=== PATIENT | male | born 1955 | race Caucasian/White ===

== ENCOUNTER 2024-01-03 22:12 | Inpatient (IN) ==
[2024-01-03 22:28] LABS: ABS Basophils 0.1 10^3/uL (0.0-0.1); ABS Eosinophils 0.3 10^3/uL (0.0-0.5); ABS Lymphocytes 1.4 10^3/uL (1.0-4.8); ABS Monocytes 0.6 10^3/uL (0.0-1.1); ABS Neutrophils 4.3 10^3/uL (1.5-7.6); ABS Nucleated RBC 0.01 10^3/ul; Eosinophil % 4.2 %; Hematocrit 42.8 % (38-53); Hemoglobin 14.9 g/dL (13.2-16.3); Lymphocyte % 21.2 %; Mean Corpuscular Hemoglobin 31.3 pg (27-33); Mean Corpuscular Hgb Conc 34.9 g/dL (31-36); Mean Corpuscular Volume 89.6 fL (80-97); Mean Platelet Volume 8.7 fL (7.5-11.2); Nucleated Red Blood Cells % 0.1 %/100WBC (0.0-0.8); Platelet Count 168 10^3/uL (150-450); Red Blood Count 4.78 10^6/uL (4.06-5.63); Red Cell Distribution Width 14.4 % (12-17); White Blood Count 6.6 10^3/uL (3.6-10.2)
[2024-01-03] MEDS: Amiodarone 150 mg IVPREMIX 150 MG/100 ML BAG IV ONE (22:29)
[2024-01-03 22:34] LABS: INR 1.03 (0.83-1.13)
[2024-01-03 23:13] LABS: Albumin/Globulin Ratio 1.6 (1-3); Calcium 8.6 mg/dL (8.6-10.3); Creatinine, Serum 1.06 mg/dL (0.67-1.17); Globulin 2.5 g/dL (2-4); Potassium 3.9 mmol/L (3.5-5.0); Total Bilirubin 0.4 mg/dL (0.2-1.0); Total Protein 6.5 g/dL (6.4-8.9); eGFR CKD-EPI 77.4 (>60)
[2024-01-03] MEDS: Metoprolol Tartrate 5 mg VIAL 5 ml VIAL (1 mg/ml) IV ONE (23:29)
[2024-01-03 23:31] LABS: Magnesium 2.1 mg/dL (1.9-2.7)
[2024-01-03 23:50] LABS: High Sensitivity Troponin 1 Hr 114 pg/mL (<20)
[2024-01-03] MEDS: Amiodarone 360 MG IVPREMIX 360 MG/200 ML BAG IV ONE (23:57)
[2024-01-03] MEDS: NS 0.9% 1000 ml BAG 500 ML IV ONE (23:58)
[2024-01-04] MEDS: Furosemide 40 mg/4 ml IV VIAL IV SLOW PU ONE (00:14)
[2024-01-04] MEDS: Potassium Chlor 20 meq TAB.ER PO ONE ×2 (00:14→08:32)
[2024-01-04 04:51] LABS: ABS Basophils 0.1 10^3/uL (0.0-0.1); ABS Eosinophils 0.3 10^3/uL (0.0-0.5); ABS Lymphocytes 2.2 10^3/uL (1.0-4.8); ABS Monocytes 0.8 10^3/uL (0.0-1.1); ABS Neutrophils 3.9 10^3/uL (1.5-7.6); ABS Nucleated RBC 0.01 10^3/ul; Eosinophil % 3.8 %; Hematocrit 42.5 % (38-53); Hemoglobin 14.6 g/dL (13.2-16.3); Lymphocyte % 30.7 %; Mean Corpuscular Hemoglobin 30.8 pg (27-33); Mean Corpuscular Hgb Conc 34.4 g/dL (31-36); Mean Corpuscular Volume 89.5 fL (80-97); Mean Platelet Volume 9.1 fL (7.5-11.2); Nucleated Red Blood Cells % 0.1 %/100WBC (0.0-0.8); Platelet Count 181 10^3/uL (150-450); Red Blood Count 4.75 10^6/uL (4.06-5.63); Red Cell Distribution Width 14.6 % (12-17); White Blood Count 7.2 10^3/uL (3.6-10.2)
[2024-01-04 05:09] LABS: Calcium 8.2 mg/dL (8.6-10.3); Creatinine, Serum 0.94 mg/dL (0.67-1.17); Potassium 3.9 mmol/L (3.5-5.0); eGFR CKD-EPI 89.4 (>60)
[2024-01-04] MEDS: Amiodarone 360 MG IVPREMIX 360 MG/200 ML BAG IV SCH ×2 (05:35→17:27)
[2024-01-04] MEDS: Metoprolol Tartrate 5 mg VIAL 5 ml VIAL (1 mg/ml) IV ONE (05:37)
[2024-01-04 07:35] LABS: High Sensitivity Troponin 1 Hr 282 pg/mL (<20)
[2024-01-04 07:43] LABS: HDL Cholesterol 28.6 mg/dL
[2024-01-04 11:42] LABS: .Transferrin 230 mg/dL (203-362); Total Iron Binding Capacity 322 mcg/dL (250-450)
[2024-01-04 11:45] LABS: T4, Total 7.01 mcg/dL (6.09-12.23)
[2024-01-04 11:49] LABS: TSH Ultra Thyroid Stim Horm 1.13 mcIU/mL (0.34-5.60)
[2024-01-04 11:56] LABS: Ferritin 182.4 ng/mL (24-336)
[2024-01-04] MEDS ORDERED: Sulfur Hexaflouride MICROSPHR 25 MG VIAL ONE (13:53)
[2024-01-04] MEDS: Furosemide 20 mg/2 ml IV VIAL IV SLOW PU ONE (14:37)
[2024-01-04] MEDS: Digoxin IV 0.5 MG/2 ML AMP (0.25 MG/ML) IV SLOW PU ONE ×2 (15:19→15:24)
[2024-01-05 04:51] LABS: ABS Eosinophils 0.3 10^3/uL (0.0-0.5); ABS Lymphocytes 1.9 10^3/uL (1.0-4.8); ABS Monocytes 0.6 10^3/uL (0.0-1.1); ABS Neutrophils 4.4 10^3/uL (1.5-7.6); ABS Nucleated RBC 0.01 10^3/ul; Eosinophil % 4.2 %; Hematocrit 43.7 % (38-53); Hemoglobin 14.9 g/dL (13.2-16.3); Mean Corpuscular Hemoglobin 30.8 pg (27-33); Mean Corpuscular Hgb Conc 34.1 g/dL (31-36); Mean Corpuscular Volume 90.4 fL (80-97); Mean Platelet Volume 8.9 fL (7.5-11.2); Nucleated Red Blood Cells % 0.2 %/100WBC (0.0-0.8); Platelet Count 174 10^3/uL (150-450); Red Blood Count 4.84 10^6/uL (4.06-5.63); Red Cell Distribution Width 14.7 % (12-17); White Blood Count 7.3 10^3/uL (3.6-10.2)
[2024-01-05 05:26] LABS: Calcium 8.9 mg/dL (8.6-10.3); Creatinine, Serum 0.97 mg/dL (0.67-1.17); Magnesium 2.2 mg/dL (1.9-2.7); Potassium 4.5 mmol/L (3.5-5.0); eGFR CKD-EPI 86.1 (>60)
[2024-01-05] MEDS: Amiodarone 400 mg TAB PO SCH (09:02)
[2024-01-05 14:45] VITALS: BP 114/74
[2024-01-05] MEDS ORDERED: Amiodarone 400 mg TAB PO SCH (21:00)
== END 2024-01-05 15:25 | disposition home or self-care (01) | DRG 309 ==
LOC: ED 22:12 → EDHOLD 01-04 00:42 → ICU 01-04 02:40
PROVIDERS: ADMIT Surgery Surgical Critical Care; ATTEND Surgery Surgical Critical Care